=== PATIENT | female | born 1955 | race Caucasian/White ===

== ENCOUNTER 2016-08-28 12:17 | Emergency (ER) | payer MEDICARE | END 2016-08-28 14:21 | disposition home or self-care (01) | LOC: ER 12:17 | DX: J06.9 Acute upper respiratory infection, unspecified (principal); M06.9 Rheumatoid arthritis, unspecified; F32.9 Major depressive disorder, single episode, unspecified; F41.9 Anxiety disorder, unspecified; F17.210 Nicotine dependence, cigarettes, uncomplicated; Z88.0 Allergy status to penicillin; Z79.899 Other long term (current) drug therapy | CPT/HCPCS: 93005; 99283; 99284-25 ==

== ENCOUNTER 2016-09-08 14:28 | Emergency (ER) | payer MEDICARE | END 2016-09-08 16:15 | disposition left against medical advice (07) | LOC: ER 14:28 | DX: R06.00 Dyspnea, unspecified (principal); R05 Cough; M06.9 Rheumatoid arthritis, unspecified; F17.210 Nicotine dependence, cigarettes, uncomplicated; Z79.899 Other long term (current) drug therapy | CPT/HCPCS: 93005; 99283-25; 99284; J2930 ==